=== PATIENT | female | born 1945 | race African-American/Black ===

== ENCOUNTER → 2017-06-10 | Outpatient (CLI) | payer MEDICARE, OTHER ==
--- NOTE | ~2017-06-10 | MY29 ---
[facility] A Service of [facility] [place] RADIOLOGY TEXT RESULTS PATIENT: SUREKHA RENE LOCATION: [facility] : 41 UNIT #: [id number] AGE: [address]: Andrew Saunders MD SEX: F ORDER DR: [id number] [facility] [address] [place], [place] [address] [id number] O MR#: [id number] Acc #: [id number] NAME: SUREKHA RENE : 1945 SEX: F STUDY DATE/TIME: 06/10/2017 12:56 UNIT: [facility] ROOM: STUDY DESCRIPTION: [facility] SCREENING W/ CAD BILAT Attending Physician: Andrew Saunders Sr., M.D. Referring Physician: Andrew Saunders Sr., M.D. Ordering Physician: Andrew Saunders Sr., M.D. Primary Care Physician: Andrew Saunders Sr., M.D. MEDICAL IMAGING REPORT This report is preliminary unless electronic signature is present EXAM Bilateral digital screening mammogram with CAD 06/10/2017 HISTORY No personal or family history of breast cancer. No current complaints. COMPARISON Bilateral screening mammogram 11/24/2015, 06/24/2014. FINDINGS CC and MLO views were obtained of each breast utilizing digital technique and reviewed with a FDA-approved CAD device. Scattered fibroglandular densities are present bilaterally. No new or suspicious nodule, architectural distortion, or clustered microcalcification is seen. Benign calcifications are present bilaterally. IMPRESSION 1. BIRADS 2. Benign findings. Routine bilateral screening mammogram is recommended in 1 year. BIRADS: 2 Benign Finding. Patients over the age of 40 are entered into a reminder system with target due date for the next mammogram. A result letter will also be sent to the patient. Dictated by... Eva Loja M.D. THIS IS AN ELECTRONICALLY VERIFIED REPORT [facility] A Service of [facility] [place] RADIOLOGY TEXT RESULTS PATIENT: SUREKHA RENE LOCATION: [facility] : 41 UNIT #: [id number] AGE: [address]: Andrew Saunders MD SEX: F ORDER DR: Eva Loja M.D. at 06/12/2017 8:51 AM EDMAR/yunior TD: 06/10/2017 20:58 JOB #: [id number] MEDICAL IMAGING REPORT Page 1 of 1 COPY
== END | disposition home or self-care (01) ==
LOC: CWCC 12:00
DX: Z12.31 Encounter for screening mammogram for malignant neoplasm of breast (principal)
CPT/HCPCS: G0202